=== PATIENT | female | born 1970 | race Caucasian/White ===

== ENCOUNTER 2019-06-18 17:35 | Emergency (ER) | payer OTHER ==
[2019-06-18] MEDS ORDERED: HYDROcodone/Acetaminophen 5/325 mg Tablet ONE (18:39)
== END 2019-06-18 19:01 | disposition home or self-care (01) ==
LOC: ERS 17:35
DX: M79.651 Pain in right thigh (principal); M25.571 Pain in right ankle and joints of right foot; F41.9 Anxiety disorder, unspecified; Z79.899 Other long term (current) drug therapy
CPT/HCPCS: 99283

== ENCOUNTER 2020-05-08 14:00 | Outpatient (CLI) | payer OTHER ==
--- NOTE | 2020-05-08 14:38 | MMO ---
Bilateral MAMMO Bilat Screen [facility]. CLINICAL HISTORY: Patient is 50 years old and is seen for screening. VIEWS: The views performed were: bilateral craniocaudal with tomosynthesis and bilateral mediolateral oblique with tomosynthesis. This study has been interpreted with the assistance of computer-aided detection. MAMMOGRAM FINDINGS: There are scattered fibroglandular densities. Finding 1: There are benign appearing calcifications seen in both breasts. Finding 2: There is an intramammary lymph node seen in the outer region of the left breast. There are no suspicious masses, suspicious calcifications, or areas of architectural distortion. IMPRESSION: THERE IS NO MAMMOGRAPHIC EVIDENCE OF MALIGNANCY. A ROUTINE FOLLOW-UP MAMMOGRAM IN 1 YEAR IS RECOMMENDED. THE RESULTS OF THIS EXAM WERE SENT TO THE PATIENT. ACR BI-RADS Category 2 - Benign finding MAMMOGRAPHY NOTE: 1. A negative mammogram report should not delay a biopsy if a dominant of clinically suspicious mass is present. 2. Approximately 10% to 15% of breast cancers are not detected by mammography. 3. Adenosis and dense breasts may obscure an underlying neoplasm. Reported by: AMAYA YU MD Electonically Signed: [id number]
== END 2020-05-08 14:01 | disposition home or self-care (01) ==
LOC: BICMAMMO 14:00
PROVIDERS: ATTEND Family Medicine
DX: Z12.31 Encounter for screening mammogram for malignant neoplasm of breast (principal)
CPT/HCPCS: 77063; 77067

== ENCOUNTER 2020-05-22 16:43 | Outpatient (CLI) | payer OTHER ==
[2020-05-22 17:59] LABS: Hemoglobin 9.5 g/dL (12.0-16.0); Mean Corpuscular HGB CONC 32.2 g/dL (32.0-36.0); Mean Corpuscular Hemoglobin 25.4 pg (27.0-31.0); Mean Corpuscular Volume 78.8 fL (78.0-98.0); Mean Platelet Volume 8.1 fL (7.4-10.4); Platelet Count 266 thou/uL (130-400); RBC Distribution Width 18.2 % (11.5-14.5); Red Blood Cell (RBC) Count 3.74 mill/uL (4.20-5.40); White Blood Cell (WBC) Count 10.1 thou/uL (4.8-10.8)
[2020-05-22 18:05] LABS: PTT 34.5 sec (22.9-36.1); Prothrombin Time 13.4 sec (12.0-14.7)
[2020-05-23 12:18] LABS: SARS-CoV-2 MS2 Positive; SARS-CoV-2 N Gene Negative; SARS-CoV-2 S Gene Negative; SARS-CoV-2 orf1ab Negative
== END 2020-05-22 16:44 | disposition home or self-care (01) ==
LOC: LABBT 16:43
PROVIDERS: ATTEND Neurological Surgery
DX: Z01.812 Encounter for preprocedural laboratory examination (principal); Z11.59 Encounter for screening for other viral diseases; M51.26 Other intervertebral disc displacement, lumbar region
CPT/HCPCS: 85027; 85610; 85730; 87635; U0003

== ENCOUNTER 2020-05-25 05:40 | Day surgery (SDC) | payer OTHER ==
[2020-05-22 11:06] VITALS: BMI 49.1
--- NOTE | 2020-05-23 19:11 | HP ---
History and physical, surgery on L4-L5 laminectomy on May 25. HISTORY OF PRESENT ILLNESS: Ms. Bowles is a 50-year-old female with back and leg pain. Her pain is greater on the right than on the left. The leg pain and numbness seems to follow the S1 distribution down to her lateral foot. She has been trying injections and some physical therapy, but not getting any permanent relief from them. CURRENT MEDICATIONS: Metformin, levothyroxine, venlafaxine, Topamax, Singulair, Prilosec, ferrous sulfate, tramadol, and gabapentin. PAST MEDICAL HISTORY: GERD, fatigue and malaise, migraines, hyperlipidemia, hypothyroidism, depression, anemia, hypothyroidism, morbid obesity, iron-deficiency anemia. PAST SURGICAL HISTORY: Knee surgery, colonoscopy, staph infection. FAMILY HISTORY: Father alive with CAD, hypercholesteremia, diabetes, hypertension. Mother alive, depression, multiple sclerosis. One sister is healthy. SOCIAL HISTORY: Nonsmoker. Does not use tobacco or illicit drugs or alcohol. ALLERGIES: NO KNOWN DRUG ALLERGIES. VITAL SIGNS: Weight 286, height 62 inches. REVIEW OF SYSTEMS: CONSTITUTIONAL: Denies fever or chills. ENT: Denies change in vision or hearing. CARDIAC: Denies chest pain, shortness of breath, diaphoresis. PULMONARY: Denies shortness of breath, cough, hemoptysis. GASTROINTESTINAL: Denies abdominal pain, nausea, vomiting, diarrhea, change in stool formation and consistency. GENITOURINARY: Denies trouble with urination, frequency of urination, bloody urine. SKIN: Denies skin rash, bruising, bleeding, skin masses. MUSCULOSKELETAL: As per history of present illness. NEUROLOGICAL: As per history of present illness. PSYCHOLOGICAL: Denies anxiety, depression, behavior changes. PHYSICAL EXAMINATION: HEENT: Pupils are equal. Extraocular movements are intact. NECK: Soft, supple. No masses are noted. Range of motion is intact and nonpainful. NEUROLOGICAL: Awake, alert, and oriented x3. Memory, attention, fund of knowledge normal. Cranial nerves grossly intact. Gait and station are normal. Motor exam, prolonged standing increases ankle and leg weakness. Heel-toe walking is difficult. Sensory exam, foot numbness in the right entire foot, mostly outer foot. IMAGING DATA: MRI, large L4-5 herniated disk and L5-S1 herniated disk causing canal and right lateral recess stenosis. X-rays of the flexion-extension is normal and stable. 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 PLAN: 1. L4-5 laminectomy. 2. Preop labs; CBC, PT, PTT, COVID-19. 3. Anesthesia clearance. INFORMED CONSENT: We discussed the indications, risks, benefits, alternatives, and expected results from surgery. The risks discussed included, but were not limited to, bleeding, infection, CSF leak, nerve damage, weakness, incontinence, cauda equina, paralysis, ventilator dependency, wheelchair dependency, loss of vision, cardiopulmonary complications of anesthesia, arachnoiditis, or . Long-term complications discussed included, but were not limited to spinal instability and further surgery. She understands the risks and is willing to proceed. Job ID: [id number]
[2020-05-25] MEDS ORDERED: Bupivacaine PF 0.5% 30 ML VIAL ONE (06:10)
[2020-05-25] MEDS ORDERED: Thrombin 5000 UNITS/5 ML VIAL ONE (06:10)
[2020-05-25] MEDS ORDERED: EPINEPHrine 1 MG/ML AMP ONE (06:10)
[2020-05-25] MEDS ORDERED: Famotidine/PF 20 mg/2ml Vial ONE (06:37)
[2020-05-25] MEDS ORDERED: Fentanyl 100 MCG/2 ML VIAL ONE ×4 (06:56→11:28)
[2020-05-25] MEDS ORDERED: HYDROmorphone 2 MG/ML VIAL SLOW IVP PRN (09:31)
[2020-05-25] MEDS ORDERED: Meperidine HCl/PF 25 MG/ML VIAL SLOW IVP PRN (09:31)
[2020-05-25] MEDS ORDERED: Promethazine HCl 25 MG/ML VIAL SLOW IVP PRN (09:31)
[2020-05-25] MEDS ORDERED: Ondansetron HCl/PF 4 MG/2 ML Vial IVP PRN (09:31)
[2020-05-25] MEDS ORDERED: diphenhydrAMINE 25 MG CAP PO PRN (10:07)
[2020-05-25] MEDS ORDERED: Tamsulosin HCl 0.4 MG CAP PO PRN (10:07)
[2020-05-25] MEDS ORDERED: Acetaminophen 325 MG TAB PO PRN (10:07)
[2020-05-25] MEDS ORDERED: Promethazine 25 MG TAB PO PRN (10:07)
[2020-05-25] MEDS ORDERED: HYDROcodone/Acetaminophen 7.5/325 mg Tablet PO PRN (10:07)
[2020-05-25] MEDS ORDERED: Milk Of Magnesia 30 ML UDCUP PO PRN (10:07)
[2020-05-25] MEDS ORDERED: Ondansetron PF 4 MG/2 ML Vial IVP PRN (10:07)
[2020-05-25] MEDS ORDERED: Scopolamine 1.5 mg/72 hour Patch TD PRN (10:07)
[2020-05-25] MEDS ORDERED: tiZANidine HCl 4 MG TAB PO PRN (10:07)
[2020-05-25] MEDS ORDERED: Sodium Chloride 0.9% 1,000 ML IV SCH (10:15)
[2020-05-25] MEDS ORDERED: SUGAMMADEX SODIUM 500 MG/5 ML VIAL ONE (10:17)
[2020-05-25] MEDS ORDERED: Acetaminophen 500 MG TAB PO PRN (10:19)
[2020-05-25] MEDS ORDERED: Naloxone HCl 0.4 mg/ml Vial ONE ×2 (10:22→10:23)
--- NOTE | 2020-05-25 10:59 | OP ---
DATE OF PROCEDURE: 05/25/2020 ENDLESS TRACK VEHICLE MECHANIC: Fritz Ribera PA-C. PREOPERATIVE INDICATION: Treat pain and prevent neurological deterioration. PREOPERATIVE DIAGNOSES: Intervertebral disk disease at L4-L5 and right L5-S1 with bilateral L5 radiculopathies and right S1 radiculopathy. POSTOPERATIVE DIAGNOSES: Intervertebral disk disease at L4-L5 and right L5-S1 with bilateral L5 radiculopathies and right S1 radiculopathy. OPERATIVE PROCEDURES: L4-L5 decompressive laminectomy, medial facetectomy, foraminotomy, and microdiskectomy, with the operating microscope, and right L5-S1 partial hemilaminectomy, medial facetectomy, foraminotomy, and microdiskectomy. PREOPERATIVE MEDICATION: Ancef 2 g IV. DRAIN NUMBER: 0. DRAIN TYPE: None. DESCRIPTION OF PROCEDURE: The patient was brought to the operating room. General endotracheal anesthesia was induced. The patient was positioned prone on the operating table with the chest and hips supported by gel-filled chest rolls. A lateral fluoro radiograph was used to plan our incision. The lumbar skin was sterilely prepped and draped. We opened the midline incision with a 10 blade knife and we controlled bleeding with bipolar and monopolar cautery. We used monopolar cautery to dissect through subcutaneous tissues to the thoracodorsal fascia. We incised the fascia in the midline and reflected the paraspinal muscles off the spinous process and lamina of L4, L5, and S1. A self-retaining retractor was placed and a lateral fluoro radiograph confirmed the levels upon which we were operating. We then used an Adson rongeur to remove the spinous process of L4 and to thin the right side of the lamina of L5. We used Kerrison rongeurs to fashion L4-L5 laminectomy and we widened our laminectomy defect by performing medial facetectomies on both sides. In similar fashion, we performed a right hemilaminotomy at L5-S1. The operating microscope was brought into the field. Under microscopic magnification using microsurgical techniques, we removed yellow ligament at the L4-L5 interspace. We performed medial facetectomies to decompress the L5 nerve roots, and we carefully mobilized L5 nerve root medially on the right side. There was a disk protrusion that was incised and multiple loose fragments of disk were removed. We reached into the interspace and removed loose fragments there, they were at risk of herniating. We irrigated with bacitracin irrigation and we turned our attention to L5-S1. In a similar fashion, we removed disk material from the ventral epidural space and the disk space after gentle retraction of the S1 nerve root. We found this was protruding into the foramen under the L5 nerve root as well and that disk was removed with a curette pushing it into the interspace and then sweeping it to where it could be safely extracted with pituitary rongeurs. At the completion of the diskectomy, there was no loose disk and all the remainder of the intervertebral disk material was densely adherent to the endplates both at L4-L5 and L5-S1. The Johnston ball probe could pass through the lateral recess and out the foramen with both L5 nerve roots and the right S1 nerve root. There was no impingement. We irrigated with bacitracin irrigation. We infused local anesthetic in the paraspinal muscles. We closed in anatomical layers and applied a sterile dressing. This was a clean case, no contamination. Job ID: [id number]
[2020-05-25] MEDS ORDERED: Ketorolac Tromethamine 30 MG/ML VIAL ONE ×2 (11:11→12:03)
[2020-05-25] MEDS ORDERED: Ketorolac Tromethamine 30 MG/ML VIAL IVP SCH (12:00)
[2020-05-25] MEDS ORDERED: Glycopyrrolate 0.2 MG/ML 5 ML SYRINGE ONE (12:03)
[2020-05-25] MEDS ORDERED: Lidocaine 1% PF 5 ML VIAL ONE (12:03)
[2020-05-25] MEDS ORDERED: Rocuronium Bromide 10 MG/ML (10ML VIAL) ONE (12:03)
[2020-05-25] MEDS ORDERED: Dexamethasone 20 MG/5 ML VIAL ONE (12:03)
[2020-05-25] MEDS ORDERED: PHENYLEPHRINE-NS 100 MCG/ML 10 ML SYRINGE ONE (12:03)
[2020-05-25] MEDS ORDERED: Ondansetron PF 4 MG/2 ML Vial ONE (12:03)
[2020-05-25] MEDS ORDERED: PROPOFOL 200 MG/20 ML VIAL ONE (12:03)
[2020-05-25] MEDS ORDERED: CEFAZOLIN 2 GM in Premix Bag 1 BAG IVPB SCH (14:00)
[2020-05-26] MEDS ORDERED: Levothyroxine Sodium 100 MCG TAB PO SCH (06:00)
[2020-05-26] MEDS ORDERED: Ferrous Sulfate 325 MG TAB PO SCH (09:00)
[2020-05-26] MEDS ORDERED: metFORMIN 500 MG TAB PO SCH (09:00)
[2020-05-26] MEDS ORDERED: Montelukast Sodium 10 mg Tablet PO SCH (09:00)
[2020-05-26] MEDS ORDERED: Topiramate 100 MG TAB PO SCH (09:00)
[2020-05-26] MEDS ORDERED: Venlafaxine HCl 37.5 MG TAB PO SCH (09:00)
== END 2020-05-25 16:30 | disposition home or self-care (01) ==
LOC: SDC 05:40
PROVIDERS: ATTEND Neurological Surgery
PROC: 01NB0ZZ Release Lumbar Nerve, Open Approach (ICD-10-PCS; principal; 2020-05-25)
DX: M48.061 Spinal stenosis, lumbar region without neurogenic claudication (principal); M51.16 Intervertebral disc disorders with radiculopathy, lumbar region; M51.17 Intervertebral disc disorders with radiculopathy, lumbosacral region; K21.9 Gastro-esophageal reflux disease without esophagitis; E78.5 Hyperlipidemia, unspecified; E03.9 Hypothyroidism, unspecified; F32.9 Major depressive disorder, single episode, unspecified; D50.9 Iron deficiency anemia, unspecified; E66.01 Morbid (severe) obesity due to excess calories; Z68.42 Body mass index [BMI] 45.0-49.9, adult; Z79.84 Long term (current) use of oral hypoglycemic drugs; Z79.899 Other long term (current) drug therapy
CPT/HCPCS: 76000; J0171; J0690; J1100; J1885; J2001; J2310; J2405; J2704; J3010; J3370; J3490; S0020; S0028

== ENCOUNTER 2021-01-06 12:28 | Emergency (ER) | payer OTHER ==
[2021-01-06] MEDS ORDERED: Ondansetron PF 4 MG/2 ML Vial IVP SCH (12:46)
[2021-01-06] MEDS ORDERED: Morphine 4 MG/ML VIAL SLOW IVP SCH (12:46)
[2021-01-06] MEDS ORDERED: Morphine 4 MG/ML VIAL ONE ×2 (12:57→16:08)
[2021-01-06] MEDS ORDERED: Ondansetron PF 4 MG/2 ML Vial ONE (12:57)
[2021-01-06 13:11] LABS: #Eosinphils 0.1 thou/uL (0.0-0.7); #Lymphocytes 2.4 thou/uL (1.20-3.40); #Monocytes 0.5 thou/uL (0.11-0.59); #Neutrophils 11.2 thou/uL (1.40-6.50); %Basophils 0.2 % (0.0-1.0); %Lymphocytes 16.5 % (21.0-51.0); %Monocytes 3.8 % (0.0-10.0); %Neutrophils 78.5 % (42.0-75.0); Mean Corpuscular Hemoglobin 23.8 pg (27.0-31.0); Mean Corpuscular Volume 76.8 fL (78.0-98.0); Mean Platelet Volume 8.1 fL (7.4-10.4); Platelet Count 342 thou/uL (130-400); RBC Distribution Width 18.7 % (11.5-14.5); Red Blood Cell (RBC) Count 4.61 mill/uL (4.20-5.40); White Blood Cell (WBC) Count 14.2 thou/uL (4.8-10.8)
[2021-01-06 13:29] LABS: ALT (SGPT) 11 U/L (8-55); AST (SGOT) 21 U/L (5-34); Albumin 4.1 g/dL (3.5-5.0); Alkaline Phosphatase 96 U/L (40-110); Anion Gap 16 mmol/L (10-20); BUN (Urea Nitrogen) 8 mg/dL (7.0-18.7); Bilirubin, Total 0.5 mg/dL (0.2-1.2); Calc. Creatinine Clearance 0 mL/min (70-130); Calcium 9.5 mg/dL (7.8-10.44); Carbon Dioxide 20 mmol/L (22-29); Chloride 105 mmol/L (98-107); Globulin 4.6 g/dL (2.4-3.5); Glucose 114 mg/dL (70-105); Potassium 4.4 mmol/L (3.5-5.1); Protein, Total 8.7 g/dL (6.0-8.3); Sodium 137 mmol/L (136-145)
[2021-01-06 14:32] LABS: Bacteria/HPF None Seen HPF (None Seen); Bilirubin Negative (Negative); Blood, Urine Negative (Negative); Clarity Clear (Clear); Glucose, Urine (Dipstick) Normal (Negative); Ketone, Urine Negative (Negative); Leukocyte 75 Leu/uL (Negative); Nitrite Negative (Negative); Protein, Urine (Dipstick) Negative (Neg-Trace); RBC/HPF 0-3 HPF (0-3); Specific Gravity, Urine 1.013 (1.002-1.036); Urobilinogen Normal mg/dL (Less than 2)
[2021-01-06 14:34] LABS: Pregnancy Test - Urine (BHCG) Negative (Negative); Pregu Control Background? CLEAR/WHITE (CLR/WHITE); Pregu Control Bar Appear? YES (CONTROL BAR); Specific Gravity 1.013 (1.002-1.036)
[2021-01-06] MEDS ORDERED: metroNIDAZOLE 500 MG in Premix Bag 1 BAG IVPB SCH (15:21)
--- NOTE | 2021-01-06 15:22 | CT ---
EXAM: ABDOMEN AND PELVIC CT SCAN WITH IV CONTRAST: 01/06/21 HISTORY: Left lower quadrant pain. FINDINGS: The lung bases appear clear. Minimal hepatomegaly. No evidence of gallstones. No ductal dilatation. T he pancreas and spleen and adrenal glands appear within normal limits. No evidence for renal calculus or acute obstruction. No solid or cystic renal mass. There is some prominent pericolonic fat stra nding in the regions of the distal descending colon with focal colonic wall thickening and some assoc iated diverticulosis changes, evidence for acute diverticulitis. No evidence for significant extralum inal gas or drainable abscess. No CT evidence for acute appendicitis. IMPRESSION: Evidence for acute diverticulitis in the distal descending colon without extraluminal gas or drainabl e abscess. Hepatomegaly. Normal appearing appendix. Other findings as above. POS: RRE
[2021-01-06] MEDS ORDERED: metroNIDAZOLE 500 MG/100 ML BAG ONE (15:29)
== END 2021-01-06 17:16 | disposition home or self-care (01) ==
LOC: ERS 12:28
DX: K57.92 Diverticulitis of intestine, part unspecified, without perforation or abscess without bleeding (principal); D64.9 Anemia, unspecified
CPT/HCPCS: 74177; 80053; 81003; 81015; 81025; 85025; 96365; 96367; 96375; 96376; J0744; J2270; J2405